=== PATIENT | male | born 1935 | race Caucasian/White ===

== ENCOUNTER 2017-11-04 21:02 | Inpatient (IN) | payer OTHER ==
[~2017-11-04] VITALS: Ht 177.8 cm; Wt 83.9 kg
--- NOTE | ~2017-11-04 | H ---
[facility] [place] [address] HISTORY AND PHYSICAL Name: ZULY CAIN Room #: 419-P ADM IN M.R.#: [id number] Admission: 11/04/17 Attend Phys: Irena Hendricks MD Discharge: Date of : 39 Report #: [id number] THIS REPORT FOR: //name// CC: Irena Hendricks DATE OF SERVICE: 11/05/2017 CHIEF COMPLAINT: Tachycardia and weakness. HISTORY OF PRESENT ILLNESS: The patient is an 82-year-old male who resides at [facility]. At baseline, he has underlying dementia, but is able to ambulate, dress himself as well as feed himself. On the evening of admission, he reportedly fell, but did not suffer any injuries. Continued monitoring revealed the patient to be tremulous, tachycardic and hypoxic. He was brought to [facility] Emergency Department for evaluation where he remained tachycardic and febrile with hypoxemia. Additional workup revealed findings of influenza B. He has been admitted for further medical management. PAST MEDICAL HISTORY: Benign prostatic hypertrophy, dementia, chronic kidney disease stage 3, iron deficiency anemia and vitamin B12 deficiency. ALLERGIES: No known drug allergies. MEDICATIONS: Ativan 0.5 mg at bedtime and 0.5 mg every 6 hours as needed, Depakote Sprinkles 125 b.i.d. for mood disorder, Aricept 10 mg at bedtime, ferrous sulfate 325 mg b.i.d., Flomax 0.4 mg at bedtime, Namenda XL 28 mg at bedtime, multivitamin 1 tablet daily. FAMILY HISTORY: Noncontributory. SOCIAL HISTORY: He is , lives in a longterm and does not use tobacco or alcohol. REVIEW OF SYSTEMS: In general, cannot be obtained from the patient due to underlying dementia; however, he is well known to me. He is ambulatory at baseline, able to feed himself as well as toilet himself. He is incontinent of urine at times. He is ambulatory without an assistive device. PHYSICAL EXAMINATION: GENERAL: The patient is a pleasant, cooperative male lying in bed, in no apparent distress. VITAL SIGNS: In the Emergency Department revealed temperature of 37.9, pulse of 109, respiratory rate 11, blood pressure 115/68. His most recent blood pressure is 90/55, oxygen saturation is reportedly at 98%. [address] [address] HISTORY AND PHYSICAL Name: ZULY CAIN Room #: 419-P [facility] IN .R.#: [id number] Admission: 11/04/17 Attend Phys: Irena Hendricks MD Discharge: Date of : 39 Report #: [id number] HEENT: Head is normocephalic, atraumatic. Pupils are equal and reactive. Extraocular muscles are intact. Oropharynx is dry. NECK: Supple. Trachea midline. LUNGS: With diffuse expiratory wheeze. CARDIOVASCULAR: Regular rate and rhythm. ABDOMEN: Soft, nontender, nondistended with normoactive bowel sounds. SKIN: Warm and dry. Turgor is somewhat diminished. LYMPHATICS: No cervical or axillary lymphadenopathy. NEUROLOGIC: He is awake, alert, oriented only to self without focal neurologic deficits or lateralizing signs. LABORATORY DATA: He was found to have influenza B positive. Other significant labs include a BUN of 25, creatinine 1.5, AST of 39, GFR of 45. Troponin is negative. Lactic acid is negative. CBC is unremarkable. Urinalysis shows blood 1+, leukocytes negative, remaining urinalysis unremarkable. ASSESSMENT: 1. Influenza B with other pulmonary manifestations. 2. Acute bronchitis with wheezing and hypoxemia. 3. Weakness. 4. Abnormal gait with falling. 5. Volume depletion with tachycardia. PLAN: Admission. We will give IV Solu-Medrol and DuoNeb nebulized treatments. We will give Tamiflu and IV fluids. We will resume home medications. We will ask PT to evaluate and treat to maintain his strength as he is ambulatory at baseline. We will also initiate DVT prophylaxis. <ELECTRONICALLY SIGNED> By: Irena Hendricks MD 11/06/17 1022 [id number] Irena Hendricks MD /nt
--- NOTE | ~2017-11-04 | EKG ---
[place] [address] [address] [employer] [place] [address] ELECTROCARDIOGRAM REPORT Name: ZULY CAIN Room #: 419-P ADM IN M.R.#: [id number] Admission: 11/04/17 Attend Phys: Irena Hendricks MD Discharge: Date of : 39 Report #: [id number] THIS REPORT FOR: //name// [facility] ED Test Date: 2017-11-04 Test Time: 21:19:44 Pat Name: ZULY CAIN Department: Room: 419 Gender: M [employer] Operator: EWA : [id number] Requested By: Leonard Moss Order Number: [id number] MD: Andrew Goldstein Measurements Intervals [place] Rate: 109 P: 76 MD: 171 QRS: 16 QRSD: 83 T: 35 QT: 315 QTc: 425 Interpretive Statements Sinus tachycardia Atrial premature complex Borderline low voltage, extremity leads Compared to ECG 01/10/2016 15:59:28 Atrial premature complex(es) now present Sinus rhythm no longer present Electronically Signed On 11-05-2017 9:03:04 [employer] by Andrew Goldstein [email or web address] <ELECTRONICALLY SIGNED> By: Andrew Goldstein MD, [facility] 11/05/17902 18 18 Andrew Goldstein MD, [facility] /EPI
[~2017-11-04 21:02] MED LIST: ACETAMINOPHEN325 M1 PO; ACIDOPHILUS1 EAC4 PO; AUGMENTIN 875875 MG PO; B12INJ IM; COMPAZINE10 M1 PO; COMPAZINE5 MG PO; DIVALPROEX SOD125 MG PO; FERROUS SULFAT325 M1 PO; FOLIC ACID 40400 MCG PO; FOLIC ACID1 MG PO; MULTIVITAMINS PO; MULTIVITAMINS1 EAC7 PO; NOHOMEMEDICATIONS; SANTYL OINTMENT30 G1 TP; TAMSULOSIN HCL0.4 M1 PO; TAMSULOSIN HCL0.4 MG PO
[2017-11-04 21:04] VITALS: BP 115/68
[2017-11-04 21:37] LABS: HEMATOCRIT 41.9 % (42.0-52.0); HEMOGLOBIN 14.3 gm/dL (14.0-18.0); MCH 30.5 pg (26.0-34.0); MCV 89.7 fL (80.0-100.0); RBC 4.68 mil/uL (4.50-6.00); RDW 14.1 % (10.5-14.5); WBC 10.4 thou/uL (4.0-11.0)
[2017-11-04 21:50] LABS: ANION GAP 5 mmol/L (7-16); BUN 25 mg/dL (7-18); CHLORIDE 105 mmol/L (98-107); CO2 27 mmol/L (21-32); CREATININE 1.5 mg/dL (0.7-1.3); GLUCOSE 130 mg/dL (74-106); POTASSIUM 4.3 mmol/L (3.5-5.1); SODIUM 137 mmol/L (136-145)
[2017-11-04 21:59] LABS: ALBUMIN 3.1 g/dL (3.4-5.0); SGOT 39 U/L (15-37); SGPT 47 U/L (30-65); TOTAL BILIRUBIN 0.5 mg/dL (<0.1-1.0); TOTAL PROTEIN 6.5 g/dL (6.4-8.2); TROPONIN-I < 0.04 ng/mL (<0.06)
[2017-11-04 22:09] LABS: URINE BILIRUBIN NEGATIVE (Negative); URINE BLOOD 1+ (Negative); URINE CLARITY CLEAR; URINE COLOR YELLOW; URINE GLUCOSE-RANDOM* NEGATIVE (Negative); URINE KETONES NEGATIVE (Negative); URINE LEUKOCYTES-REFLEX NEGATIVE (Negative); URINE NITRITE-REFLEX NEGATIVE (Negative); URINE PROTEIN (DIPSTICK) TRACE (Negative); URINE UROBILINOGEN 0.2 E.U./dl (0.2-1.0)
[2017-11-04] MEDS ORDERED: ARICEPT 5 MG TAB5 MG PO (22:13)
[2017-11-04] MEDS ORDERED: ATIVAN0.5 MG PO ×2 (22:13→22:14)
[2017-11-04] MEDS ORDERED: DEPAKOTE SPRIN125 MG PO (22:15)
[2017-11-04] MEDS ORDERED: NAMENDA XR28 MG PO (22:16)
[2017-11-04 22:21] LABS: BACTERIA-REFLEX None Seen /HPF (None Seen); CASTS None Seen /LPF (None Seen); CRYSTALS None Seen /LPF (None Seen); SQUAMOUS 0-3 Few /LPF (0-3); URINE RBC 3-10 Few /HPF (0-2); URINE WBC-REFLEX 0-5 Rare /HPF (0-5)
[2017-11-05 01:27] VITALS: BP 106/56
[2017-11-05 04:00] VITALS: BP 90/55
[2017-11-05 07:45] VITALS: BP 45/89
[2017-11-05 15:28] VITALS: BP 116/66
[2017-11-05 20:30] VITALS: BP 98/62
[2017-11-06 08:38] VITALS: BP 108/59
[2017-11-06 17:07] VITALS: BP 107/63
[2017-11-06 20:00] VITALS: BP 93/47
[2017-11-07 03:25] VITALS: BP 118/73
[2017-11-07 07:20] VITALS: BP 119/68
[2017-11-07] MEDS ORDERED: LEVAQUIN 500 M500 M1 PO (09:21)
[2017-11-07] MEDS ORDERED: TAMIFLU30 MG PO (09:23)
[2017-11-07] MEDS ORDERED: DUONEB 2.5-0.5 M3 ML INH (09:23)
[2017-11-07] MEDS ORDERED: PREDNISONE 10 M10 M1 PO (09:25)
[2017-11-07] MEDS ORDERED: SEROQUEL 25 MG25 M2 PO (09:30)
== END 2017-11-07 14:13 | DRG 153 ==
LOC: ER 21:02 → 4E 22:43 → EROBS 22:43 → 4E 11-05 02:35
PROVIDERS: Emergency Medicine
DX: J11.1 Influenza due to unidentified influenza virus with other respiratory manifestations (principal); F03.91 Unspecified dementia, unspecified severity, with behavioral disturbance; J20.9 Acute bronchitis, unspecified; K21.9 Gastro-esophageal reflux disease without esophagitis; N40.0 Benign prostatic hyperplasia without lower urinary tract symptoms; I12.9 Hypertensive chronic kidney disease with stage 1 through stage 4 chronic kidney disease, or unspecified chronic kidney disease; N18.3 Chronic kidney disease, stage 3 (moderate); E86.9 Volume depletion, unspecified; R00.0 Tachycardia, unspecified; Z79.899 Other long term (current) drug therapy; Z90.49 Acquired absence of other specified parts of digestive tract
CPT/HCPCS: 10183